=== PATIENT | female | born 1995 | race Caucasian/White ===

== ENCOUNTER 2016-08-19 13:04 | Emergency (ER) | payer SELFPAY ==
[~2016-08-19] VITALS: Ht 167.6 cm; Wt 90.0 kg
[2016-08-19 13:07] VITALS: BP 130/65; PULSE 60; RESP 18; TEMP 97.7; O2SAT 94
--- NOTE | 2016-08-19 13:25 | PD ---
Physical Exam Date Seen by Provider: August 19, 2016 Time Seen by Provider: 13:24 Narrative 21 year old female presents to the emergency department for itchy rash to bilateral arms, believes it is poison mahesh. She states it started 1 week ago. No difficulty swallowing or breathing. No chronic medical problems. Vital signs reviewed. Patient awaiting bed placement. Data Data Last Documented VS Vital Signs Date Time Temp Pulse Resp B/P Pulse Ox O2 Delivery O2 Flow Rate FiO2 08/19/16 13:07 97.7 60 18 130/65 94 MDM Supervised Visit with JINNY: Elisabeth Corado August 19, 2016 13:25
[2016-08-19 13:42] VITALS: O2SAT 98
[2016-08-19] MEDS ORDERED: PRED-503 PO (13:45)
--- NOTE | 2016-08-19 13:46 | PD ---
HPI Chief Complaint: Skin Problem Time Seen by Provider: 13:45 Travel History International Travel<30 days: No Contact w/Intl Traveler<30days: No Traveled to known affect area: No History of Present Illness HPI 21-year-old female presents to the emergency Department with complaint of a rash to her right arm for approximately 5-6 days. Her boyfriend has a rash after being exposed to poison lizbeth and her rash developed approximately 1-2 days after his. Her rash is itchy. She reports it spreading to her neck and left wrist area but I do not visualize any rash to those areas at this time. Denies fever, vomiting. Denies airway edema, shortness of breath, difficulty breathing. She has applied a topical anti-itch cream with no relief of symptoms. She has not tried any other medications or treatments to alleviate her symptoms. No known allergies. Has no other medical complaints. No other modifying factors or associated signs and symptoms. [facility] Social History Tobacco Use: No Allergies-Medications (Allergen,Severity, Reaction): Coded Allergies: No Known Allergies (Unverified , 08/19/16) Reported Meds & Prescriptions Reported Meds & Active Scripts Active Deltasone (Prednisone) 20 Mg Tab 40 Mg PO DAILY 5 Days Review of Systems Except as stated in HPI: all other systems reviewed are Neg Physical Exam Narrative GENERAL: Well-nourished, well-developed patient, in no acute distress; afebrile , nontoxic-appearing SKIN: Warm and dry. Small areas of maculopapular rash right antecubital area; right upper extremity supple and non-tense with 2+ radial pulses and sensory intact without erythema or edema. I did not notice any rash to the patient's neck or left wrist/hand area. HEAD: Atraumatic. Normocephalic. EYES: Pupils equal and round. ENT: Mucosa pink and moist. No erythema or exudates. Airway patent. EARS: Bilateral pinnae and external canals appear within normal limits. NECK: Trachea midline. No lymphadenopathy. CARDIOVASCULAR: Regular rate. RESPIRATORY: No accessory muscle use. GASTROINTESTINAL: Obese. MUSCULOSKELETAL: No obvious deformities. No clubbing. No cyanosis. No edema. NEUROLOGICAL: Awake and alert. Oriented 3. No obvious cranial nerve deficits. Motor grossly within normal limits. Normal speech. Moves all extremities. 5/5 strength to all extremities. PSYCHIATRIC: Appropriate mood and affect; insight and judgment normal. Data Data Last Documented VS Vital Signs Date Time Temp Pulse Resp B/P Pulse Ox O2 Delivery O2 Flow Rate FiO2 08/19/16 13:42 98 Room Air 08/19/16 13:07 97.7 60 18 130/65 MDM Medical Decision Making Medical Screen Exam Complete: Yes Emergency Medical Condition: Yes Medical Record Reviewed: Yes Differential Diagnosis Poison lizbeth, contact dermatitis, hives, nonspecific rash Narrative Course 21-year-old female with a nonspecific rash to her right antecubital area. Her boyfriend has a rash all over and said he was exposed to poison lizbeth. The rash is itchy. She's had a rash for approximately 5-6 days without worsening. No other areas noted other than the right antecubital area. I will prescribe a prescription for prednisone as needed for worsening of the rash; this was discussed with the patient and she verbalizes understanding and agreement. Instructed patient to take Benadryl and use topical creams as needed for relief of itching. Instructed patient to follow up with dermatology as needed. Patient verbalizes understanding and agreement with treatment plan. Patient is medically cleared and stable for discharge. Discussed reasons to return to the emergency department. Instructed patient to follow up with primary care provider. Patient agrees with treatment plan. The patients vital signs are stable and the patient is stable for outpatient follow-up and treatment. Patient discharged home, stable and in no acute distress. Diagnosis Primary Impression: Rash and nonspecific skin eruption Referrals: Board Certified Music Therapist Primary Care Physician Patient Instructions: Acute Rash (ED), General Instructions, Poison Lizbeth (ED) Departure Forms: Tests/Procedures, Work Release Enter return to work date: August 20, 2016 Additional Instructions: Take prednisone as prescribed [id number] topicals to reduce itch Benadryl as directed and as needed to reduce itch Follow-up with your primary care provider Return to the emergency department immediately with worsening of symptoms Med/Other Pt SpecificInfo: Prescription(s) given Scripts Prednisone (Deltasone)20 Mg Tab40 Mg PO DAILY 5 Days Ref 0 Prov:Liliya Marcos 08/19/16 Disposition: 01 DISCHARGE HOME Condition: Stable Liliya Marcos August 19, 2016 13:46
== END 2016-08-19 14:00 | disposition home or self-care (01) ==
LOC: NEPK 13:04
DX: R21 Rash and other nonspecific skin eruption (principal); Z79.899 Other long term (current) drug therapy
CPT/HCPCS: 99282